=== PATIENT | female | born 1965 | race Caucasian/White ===

== ENCOUNTER 2018-12-08 22:37 | Emergency (ER) | payer BC ==
[2018-12-09] MEDS: KETOROLAC 30 MG INJ IM (00:21)
[2018-12-09] MEDS: HYDROCODONE/APAP (5/325) TAB PO (00:22)
== END 2018-12-09 02:52 | disposition home or self-care (01) ==
LOC: FTE 22:37
DX: M77.12 Lateral epicondylitis, left elbow (principal)
CPT/HCPCS: 73080; 73080-LT; 96372; 99284-25